=== PATIENT | male | born 1995 | race Caucasian/White ===

== ENCOUNTER 2021-05-26 02:14 | Emergency (ER) | payer BC ==
[2021-05-26 02:39] LABS: Absolute Lymphocytes (CBC) 2.4 K/uL (0.7-4.9); Basophils % 0.6 % (0-1.3); Hematocrit 45.3 % (39.6-49.0); Lymphocytes % 25.9 % (15.3-44.8); MPV 7.8 fL (7.6-11.3); RBC Red Blood Cell Count 5.75 M/uL (4.33-5.43)
[2021-05-26 02:42] LABS: Protime INR 1.11
[2021-05-26 03:14] LABS: Urine Blood Negative (Negative); Urine Glucose Negative (Negative); Urine Protein 1+ (Negative); Urine Specific Gravity >=1.030 (1.005-1.030)
[2021-05-26 03:27] LABS: ALT/SGPT 22 U/L (12-78); AST/SGOT 11 U/L (15-37); Albumin 4.2 g/dL (3.4-5.0); Alkaline Phosphatase 154 U/L (45-117); BUN Blood Urea Nitrogen 14 mg/dL (7-18); Bicarbonate 27 mmol/L (21-32); Bilirubin Direct 0.1 mg/dL (0-0.2); Bilirubin Total 0.4 mg/dL (0.2-1.0); Glucose Level 107 mg/dL (74-106); Potassium 3.6 mmol/L (3.5-5.1); Protein, Total 7.8 g/dL (6.4-8.2); Sodium Level 142 mmol/L (136-145)
[2021-05-26 03:44] LABS: Barbiturates NEGATIVE (NEGATIVE); Benzodiazepines NEGATIVE (NEGATIVE); Cocaine NEGATIVE (NEGATIVE); METHAMPHETAM NEGATIVE (NEGATIVE); Methadone NEGATIVE (NEGATIVE); Opiates NEGATIVE (NEGATIVE); Phencyclidine NEGATIVE (NEGATIVE); THC Cannibis NEGATIVE (NEGATIVE)
--- NOTE | 2021-05-26 06:01 | EDPHYS ---
Physician Documentation [facility] Name: Savage Senior Age: 25 yrs Sex: Male : 1995 Arrival Date: 05/26/2021 Time: 02:16 Bed 24 Private MD: ED Physician Frank Chino HPI: 05/26 02:18 This 25 yrs old Male presents to ER via Unassigned with complaints of Cuts to rn arm. 02:18 The patient presents to the emergency department with depression, suicide ideation, but rn the patient has no formulated plan. Onset: The symptoms/episode began/occurred today. Associated signs and symptoms: Pertinent positives; anxiety, depression, suicide ideation, Pertinent negatives: fever, hallucinations, homicidal ideation, substance abuse. Severity of symptoms: At their worst the symptoms were mild in the emergency department the symptoms have improved. The patient has experienced similar episodes in the past. The patient has not recently seen a physician. Patient brought in by police after roommate called police for possible suicidal ideations. Patient states he just had an argument with his girlfriend when out side took a walk and scraped his arm perpendicularly with a blade that was dull. States he was having suicidal ideations at the time but took himself out of it, did not have a specific plan, walked home and was locked out of the house. Lives with roommate called police after seeing skin danielson. Patient states currently not suicidal or homicidal. Denies substance abuse or overdose.. Historical: - Allergies: 02:20 Bactrim; dc2 - Immunization history:: Adult Immunizations up to date, Client reports having NOT received the Covid vaccine. Last tetanus immunization: up to date. - Family history:: not pertinent. - Social history:: Smoking status: Patient/guardian denies using alcohol, street drugs, tobacco products. - Hospitalizations: : No recent hospitalization is reported. ROS: 02:18 Constitutional: Negative for fever, chills, and weight loss, Eyes: Negative for injury, rn pain, redness, and discharge, ENT: Negative for injury, pain, and discharge, Neck: Negative for injury, pain, and swelling, Cardiovascular: Negative for chest pain, palpitations, and edema, Respiratory: Negative for shortness of breath, cough, wheezing, and pleuritic chest pain, Abdomen/GI: Negative for abdominal pain, nausea, vomiting, diarrhea, and constipation, Back: Negative for injury and pain, : Negative for injury, bleeding, discharge, and swelling, MS/Extremity: Negative for injury and deformity, Skin: Positive for abrasions left dorsal forearm, no laceration Neuro: Negative for headache, weakness, numbness, tingling, and seizure, Psych: Negative for homicidal ideation, and hallucinations. Exam: 02:18 Constitutional: This is a well developed, well nourished patient who is awake, alert, rn and in no acute distress. Disheveled Head/Face: Normocephalic, atraumatic. Eyes: Periorbital areas with no swelling, redness, or edema. Cardiovascular: Regular rate and rhythm. No pulse deficits. Respiratory: No increased work of breathing, no retractions or nasal flaring. Abdomen/GI: Soft, non-tender Skin: Warm, dry MS/ Extremity: Pulses equal, no cyanosis. Neuro: Awake and alert, GCS 15, oriented to person, place, time, and situation. Cranial nerves II-XII grossly intact. Motor strength 5/5 in all extremities. Sensory grossly intact. Cerebellar exam normal. Normal gait. 02:36 ECG was reviewed by the Attending Physician. rn Vital Signs: 02:05 BP 135 / 91; Pulse 93; Resp 17; Temp 97.8; Pulse Ox 100% on R/A; Weight 99.79 kg; dc2 Height 6 ft. 2 in. (187.96 cm); Pain 0/10; 02:10 BP 135 / 91; Pulse 93; Resp 17; Temp 97.1; Pulse Ox 100% ; Weight 99.79 kg; Height 6 dc2 ft. 2 in. (187.96 cm); Pain 0/10; 03:00 BP 127 / 84; Pulse 72; Resp 17; Pulse Ox 99% on R/A; Pain 0/10; dc2 04:00 BP 118 / 77; Pulse 68; Resp 16; Pulse Ox 100% on R/A; Pain 0/10; dc2 06:09 BP 108 / 72; Pulse 74; Resp 18; Temp 98.0; Pulse Ox 99% on R/A; Pain 0/10; dc2 02:10 Body Mass Index 28.25 (99.79 kg, 187.96 cm) dc2 MDM: 02:17 Patient medically screened. rn 05:59 Differential diagnosis: depression, Suicidal ideation. Data reviewed: vital signs, rn nurses notes, lab test result(s), and as a result, I will discharge patient. Counseling: I had a detailed discussion with the patient and/or guardian regarding: the historical points, exam findings, and any diagnostic results supporting the discharge/admit diagnosis, lab results, the need for outpatient follow up, to return to the emergency department if symptoms worsen or persist or if there are any questions or concerns that arise at home. Response to treatment: the patient's symptoms have markedly improved after treatment, and as a result, I will discharge patient. Special discussion: I discussed with the patient/guardian in detail that at this point there is no indication for admission to the hospital. It is understood, however, that if the symptoms persist or worsen the patient needs to return immediately for re-evaluation. Based on the history and exam findings, there is no indication for further emergent testing or inpatient evaluation. I discussed with the patient/guardian the need to see the psychiatrist for further evaluation of the symptoms. ED course: Patient medically cleared, evaluated by [facility] mental health specialist, the recommendation is to discharge home with outpatient appointment. Patient has denied suicidal ideation to me and to [facility] specialist. Patient states does not think he will harm himself or anybody if discharged.. 05/26 02:18 Order name: Acetaminophen 05/26 02:18 Order name: Basic Metabolic Panel 05/26 02:18 Order name: CBC with Diff; Complete Time: 05/26 02:18 Order name: ETOH Level; Complete Time: 05/26 02:18 Order name: Hepatic Function; Complete Time: 05/26 02:18 Order name: PT-INR; Complete Time: 05/26 02:18 Order name: Ptt, Activated; Complete Time: 05/26 02:18 Order name: Salicylate; Complete Time: 05/26 02:18 Order name: Urine Drug Screen; Complete Time: 05/26 02:18 Order name: Acetaminophen Level; Complete Time: EDMA 05/26 02:18 Order name: Basic Metabolic Panel; Complete Time: EDMA 05/26 02:37 Order name: COVID-19 : Document "Date of Symptom Onset" if Symptomatic. rn 05/26 03:14 Order name: Urine Dipstick-Ancillary; Complete Time: 04:28 EDMS 05/26 03:20 Order name: CORONAVIRUS EDMS 05/26 02:18 Order name: EKG; Complete Time: 02:19 rn 05/26 02:18 Order name: EKG - Nurse/Tech; Complete Time: 02:44 rn 05/26 02:18 Order name: IV Saline Lock; Complete Time: 02:19 rn 05/26 02:18 Order name: Labs collected and sent; Complete Time: 02:20 rn 05/26 02:18 Order name: Suicide Precautions; Complete Time: 02:20 rn 05/26 02:18 Order name: Suicide Screening ([place]); Complete Time: 03:12 rn 05/26 02:18 Order name: Urine Dipstick-Ancillary (obtain specimen); Complete Time: 03:12 rn 05/26 02:18 Order name: Wound Care; Complete Time: 02:55 rn 05/26 04:21 Order name: SARS-COV-2 RT PCR; Complete Time: 04:28 EDMS EC:36 Rate is 82 beats/min. Rhythm is regular. QRS [place] is Normal. RI interval is normal. QRS rn interval is normal. QT interval is normal. No Q waves. T waves are Normal. No ST changes noted. Clinical impression: Normal ECG. Interpreted by me. Reviewed by me. Administered Medications: No medications were administered Disposition Summary: 05/26/21 06:01 Discharge Ordered Location: Home rn Problem: new rn Symptoms: have improved rn Condition: Stable rn Diagnosis - Acute stress reaction rn - Suicidal ideations - Resolved(05/26/21 06:01) rn Followup: rn - With: Private Physician - When: As needed - Reason: Recheck today's complaints, Re-evaluation by your physician Discharge Instructions: - Discharge Summary Sheet rn - Suicidal Feelings: How to Help Yourself rn - Stress, Adult rn Forms: - Medication Reconciliation Form rn - Thank You Letter rn - Antibiotic property management intern - Prescription Opioid Use rn Signatures: Dispatcher [facility] Frank Andres MD MD rn Meka Joe RN RN dc2 Corrections: (The following items were deleted from the chart) 02:43 02:20 Allergies: No Known Allergies; dc2 dc2 06:01 06:01 Suicidal ideations rn rn
--- NOTE | 2021-05-26 06:01 | ER ---
Nurse's Notes [facility] Name: Savage Senior Age: 25 yrs Sex: Male : 1995 Arrival Date: 05/26/2021 Time: 02:16 Bed 24 Private MD: Diagnosis: Suicidal ideations-Resolved;Acute stress reaction Presentation: 05/26 02:05 Chief complaint: Patient states: " Me and the girlfriend got into it but we're good dc2 now" States scraped arm with a dull knife because he was frustrated. Denies SI or HI at this time. State" I woud have used a sharp knife if he had intentions of hurting himself". 02:05 Coronavirus screen: Vaccine status: Patient reports being unvaccinated. Client denies dc2 travel out of the [place] in the last 14 days. At this time, the client does not indicate any symptoms associated with coronavirus-19. Ebola Screen: Patient negative for fever greater than or equal to 101.5 degrees Fahrenheit, and additional compatible Ebola Virus Disease symptoms Patient denies exposure to infectious person. Patient denies travel to an Ebola-affected area in the 21 days before illness onset. Initial Sepsis Screen: Does the patient meet any 2 criteria? No. Patient's initial sepsis screen is negative. Does the patient have a suspected source of infection? No. Patient's initial sepsis screen is negative. Risk Assessment: Do you want to hurt yourself or someone else? Patient reports no desire to harm self or others. 02:05 Method Of Arrival: Law Enforcement dc2 02:18 Acuity: DONNA 2 dc2 02:18 Onset of symptoms was May 26, 2021 at 00:30. dc2 Triage Assessment: 02:05 General: Appears obese, unkempt, Behavior is cooperative, Smells of body odor. states dc2 hasn't had water in house in over a year. . Reports. Pain: Denies pain. Neuro: No deficits noted. Cardiovascular: No deficits noted. Respiratory: No deficits noted. : No deficits noted. Musculoskeletal: No deficits noted. Injury Description: Abrasion sustained to left arm, superficial cuts to left forearm . No bleeding noted. Historical: - Allergies: 02:20 Bactrim; dc2 - Immunization history:: Adult Immunizations up to date, Client reports having NOT received the Covid vaccine. Last tetanus immunization: up to date. - Family history:: not pertinent. - Social history:: Smoking status: Patient/guardian denies using alcohol, street drugs, tobacco products. - Hospitalizations: : No recent hospitalization is reported. Screenin:20 Abuse screen: Denies threats or abuse. Denies injuries from another. Nutritional dc2 screening: No deficits noted. Tuberculosis screening: No symptoms or risk factors identified. Never had TB. Possible symptoms: None Risk factors: None. Fall Risk None identified. Exposure risk/Travel Screening: None identified. Assessment: 02:05 General: Appears obese, unkempt, Behavior is calm, cooperative, Smells of Body odor. dc2 Reports Denies SI or HI. Neuro: No deficits noted. Respiratory: No deficits noted. GI: No deficits noted. : No deficits noted. Derm: Skin superficial scrapes/ cuts to left forearm, no bleeding. 02:20 Reassessment: Pt instructed on need for urine sample. Water given per request so that dc2 he can urinate. Vital Signs: 02:05 BP 135 / 91; Pulse 93; Resp 17; Temp 97.8; Pulse Ox 100% on R/A; Weight 99.79 kg; dc2 Height 6 ft. 2 in. (187.96 cm); Pain 0/10; 02:10 BP 135 / 91; Pulse 93; Resp 17; Temp 97.1; Pulse Ox 100% ; Weight 99.79 kg; Height 6 dc2 ft. 2 in. (187.96 cm); Pain 0/10; 03:00 BP 127 / 84; Pulse 72; Resp 17; Pulse Ox 99% on R/A; Pain 0/10; dc2 04:00 BP 118 / 77; Pulse 68; Resp 16; Pulse Ox 100% on R/A; Pain 0/10; dc2 06:09 BP 108 / 72; Pulse 74; Resp 18; Temp 98.0; Pulse Ox 99% on R/A; Pain 0/10; dc2 02:10 Body Mass Index 28.25 (99.79 kg, 187.96 cm) dc2 ED Course: 02:15 Irrigation of superficial cuts to left forearm cleaned with normal saline. dc2 02:16 Patient arrived in ED. mw2 02:17 Frank Chino MD is Attending Physician. rn 02:19 Meka Joe RN is Primary Nurse. dc2 02:19 Basic Metabolic Panel Sent. dc2 02:19 Acetaminophen Level Sent. dc2 02:19 Acetaminophen Sent. dc2 02:19 Basic Metabolic Panel Sent. dc2 02:19 CBC with Diff Sent. dc2 02:19 ETOH Level Sent. dc2 02:19 Hepatic Function Sent. dc2 02:19 PT-INR Sent. dc2 02:19 Ptt, Activated Sent. dc2 02:19 Salicylate Sent. dc2 02:20 Inserted saline lock: 20 gauge in right antecubital area, using aseptic technique. dc2 02:20 No provider procedures requiring assistance completed. dc2 02:20 Patient has correct armband on for positive identification. Allergy band placed. Placed dc2 in gown. Bed in low position. Call light in reach. Side rails up X 1. nurse monitoring on. Pulse ox on. NIBP on. Door closed. Lights dimmed. 02:20 Arm band placed on right wrist. dc2 02:24 Triage completed. dc2 02:57 COVID swab sent to lab. dc2 03:00 Awaiting lab results. dc2 03:00 nurse monitoring on. Pulse ox on. NIBP on. dc2 04:00 No apparent distress. Resting quietly. dc2 04:36 contacted [facility] Line spoke to Elvi to have a screener evaluate the 2 patient. 05:10 CORONAVIRUS Sent. dc2 05:22 Pt on phone with psychiatry. dc2 06:08 IV discontinued, intact, bleeding controlled, No redness/swelling at site. Pressure dc2 dressing applied. Administered Medications: No medications were administered Outcome: 06:01 Discharge ordered by . rn 06:07 Discharged to home ambulatory. dc2 06:07 Condition: stable 06:07 Discharge instructions given to patient, Instructed on discharge instructions, follow up and referral plans. Demonstrated understanding of instructions. 06:15 Patient left the ED. dc2 Signatures: Frank Chino MD MD rn [place], [facility] Meka Joe RN RN dc2 Corrections: (The following items were deleted from the chart) 02:36 02:05 Acuity: DONNA 2 dc2 dc2 02:37 02:05 Method Of Arrival: Law Enforcement dc2 dc2 02:38 02:05 Chief complaint: Patient states: " Me and the girlfriend got into it but we're dc2 good now" States scraped arm with a dull knife because he was frustrated. Denies SI or HI at this time. State" I woud have used a sharp knife if he had intentions of hurting himself" dc2 02:43 02:20 Allergies: No Known Allergies; dc2 dc2
[2021-05-26 06:49] VITALS: BP 108/72; TEMP 98; O2SAT 99
== END 2021-05-26 06:15 | disposition home or self-care (01) ==
LOC: ER 02:14
DX: F43.0 Acute stress reaction (principal); Z20.822 Contact with and (suspected) exposure to COVID-19; Z88.1 Allergy status to other antibiotic agents
CPT/HCPCS: 93005; 85025; 80048; 36415; 80320; 80329 ×2; 85610; 80076; 85730; 81003; 80307; 99284; U0003

== ENCOUNTER 2022-01-12 09:09 | Emergency (ER) | payer SELFPAY ==
--- NOTE | 2022-01-12 10:04 | EDPHYS ---
Physician Documentation [facility] Name: Savage Senior Age: 26 yrs Sex: Male : 1995 Arrival Date: 01/12/2022 Time: 09:12 Bed Waiting Private MD: KIRTI Physician Shilo Garcia HPI: 01/12 10:01 This 26 yrs old Male presents to ER via Ambulatory with complaints of Bee Sting. jmm 10:01 The patient or guardian reports injury, pain. The complaints affect the left hand. jmm Onset: The symptoms/episode began/occurred acutely, 1 day(s) ago. Associated signs and symptoms: Pertinent positives: swelling. It is unknown whether or not the patient has had similar symptoms in the past. Patient states he was stund by a yellow jacket yesterday with increased swelling today. Denies shortness of breath. Historical: - Allergies: 09:23 Bactrim; ll1 - PMHx: 09:23 Asthma; psych problems; ll1 - PSHx: 09:23 None; ll1 - Immunization history:: Client reports having NOT received the Covid vaccine. - Social history:: Smoking status: Patient reports the use of cigarette tobacco products, smokes one pack cigarettes per day. ROS: 10:01 Constitutional: Negative for fever, chills, and weight loss, Cardiovascular: Negative jmm for chest pain, palpitations, and edema, Respiratory: Negative for shortness of breath, cough, wheezing, and pleuritic chest pain. 10:01 MS/extremity: Positive for swelling. 10:01 All other systems are negative. Exam: 10:01 Constitutional: This is a well developed, well nourished patient who is awake, alert, jmm and in no acute distress. Head/Face: atraumatic. Eyes: EOMI, no conjunctival erythema appreciated ENT: Moist Mucus Membranes Neck: Trachea midline, Supple Chest/axilla: Normal chest wall appearance and motion. Cardiovascular: Regular rate and rhythm. No edema appreciated Respiratory: Normal respirations, no respiratory distress appreciated Abdomen/GI: Non distended, soft Back: Normal ROM 10:01 Musculoskeletal/extremity: swelling noted to the left hand, from appreciated, full radial pulse. 10:01 Skin: swelling noted to the left hand. 10:01 Neuro: Orientation: is normal, Mentation: is normal, Memory: is normal. 10:01 Psych: Behavior/mood is pleasant, cooperative. Vital Signs: 09:25 BP 174 / 105; Pulse 100; Resp 16; Temp 98.5; Pulse Ox 97% on R/A; Weight 99.79 kg; ll1 Height 6 ft. 2 in. (187.96 cm); Pain 8/10; 10:40 BP 139 / 85; Pulse 100; Resp 16; Pulse Ox 97% on R/A; ll1 09:25 Body Mass Index 28.25 (99.79 kg, 187.96 cm) 1 MDM: 10:00 Patient medically screened. [facility] 10:02 Data reviewed: vital signs, nurses notes. Counseling: I had a detailed discussion with maxi the patient and/or guardian regarding: the historical points, exam findings, and any diagnostic results supporting the discharge/admit diagnosis, the need for outpatient follow up, to return to the emergency department if symptoms worsen or persist or if there are any questions or concerns that arise at home. ED course: Patient is alert and non toxic in appearance in the ED. Left hand is NVI. Will treat with steroids and abx. Patient otherwise given strict return precautions. Patient understood and agrees with the plan of care. . Administered Medications: 10:27 Drug: Decadron (dexamethasone) 10 mg Route: IM; Site: right vastus lateralis; 1 19:12 Follow up: Response: No adverse reaction [facility] Disposition Summary: 01/12/22 10:04 Discharge Ordered Location: Home [facility] Condition: Stable [facility] Diagnosis - Hymenoptra Envenomation of the Left Hand, initial visit [facility] Followup: [facility] - With: Private Physician - When: 2 - 3 days - Reason: Recheck today's complaints, Continuance of care, Re-evaluation by your physician Discharge Instructions: - Discharge Summary Sheet [facility] - Bee, Wasp, or Hornet Sting, Adult [facility] Forms: - Medication Reconciliation Form [facility] - Thank You Letter joel - Antibiotic Education [facility] - Prescription Opioid Use [facility] - Work release form 1 Prescriptions: - Cephalexin 500 mg Oral Capsule - take 1 capsule by ORAL route every 6 hours for 10 days; 40 capsule; Refills: 0, [facility] Product Selection Permitted - Prednisone 20 mg Oral Tablet - take 3 tablets by ORAL route once daily for 5 days; 15 tablet; Refills: 0, jmm Product Selection Permitted Signatures: Antwan Delgado PA PA jmm Lewis, Lynsay, RN RN ll1
--- NOTE | 2022-01-12 10:04 | ER ---
Nurse's Notes [facility] Name: Savage Senior Age: 26 yrs Sex: Male : 1995 Arrival Date: 01/12/2022 Time: 09:12 Bed Waiting Private MD: Diagnosis: Hymenoptra Envenomation of the Left Hand, initial visit Presentation: 01/12 09:25 Chief complaint: Patient states: Sting to L hand yesterday. Hand swollen today. No ll1 fever. Coronavirus screen: Vaccine status: Patient reports being unvaccinated. Client denies travel out of the [place] in the last 14 days. At this time, the client does not indicate any symptoms associated with coronavirus-19. Ebola Screen: Patient denies travel to an Ebola-affected area in the 21 days before illness onset. Onset: The symptoms/episode began/occurred yesterday. Anaphylaxis evaluation, no signs or symptoms of anaphylaxis were noted. Initial Sepsis Screen: Does the patient meet any 2 criteria? No. Patient's initial sepsis screen is negative. Does the patient have a suspected source of infection? Yes: Skin breakdown/wound. Risk Assessment: Do you want to hurt yourself or someone else? Patient reports no desire to harm self or others. Onset of symptoms was January 11, 2022. 09:25 Method Of Arrival: Ambulatory ll1 09:25 Acuity: DONNA 4 ll1 Triage Assessment: 09:25 General: Appears uncomfortable, Behavior is calm, cooperative, appropriate for age. ll1 Pain: Complains of pain in left hand Quality of pain is described as aching. Derm: Reports swelling L hand. s/p insect bite. Historical: - Allergies: 09:23 Bactrim; ll1 - PMHx: 09:23 Asthma; psych problems; ll1 - PSHx: 09:23 None; ll1 - Immunization history:: Client reports having NOT received the Covid vaccine. - Social history:: Smoking status: Patient reports the use of cigarette tobacco products, smokes one pack cigarettes per day. Screenin:41 Abuse screen: Denies threats or abuse. Nutritional screening: No deficits noted. ll1 Tuberculosis screening: No symptoms or risk factors identified. Fall Risk Total Rhoades Fall Scale indicates No Risk (0-24 pts). Assessment: 10:40 Reassessment: No changes from previously documented assessment. Patient and/or family ll1 updated on plan of care and expected duration. Pain level reassessed. Patient is alert, oriented x 3, equal unlabored respirations, skin warm/dry/pink. Respiratory: Airway is patent Respiratory effort is even, unlabored, Breath sounds are clear bilaterally. Vital Signs: 09:25 BP 174 / 105; Pulse 100; Resp 16; Temp 98.5; Pulse Ox 97% on R/A; Weight 99.79 kg; ll1 Height 6 ft. 2 in. (187.96 cm); Pain 8/10; 10:40 BP 139 / 85; Pulse 100; Resp 16; Pulse Ox 97% on R/A; ll1 09:25 Body Mass Index 28.25 (99.79 kg, 187.96 cm) ll1 ED Course: 09:12 Patient arrived in ED. mr 09:24 Arm band placed on. ll1 09:26 Triage completed. 1 09:32 [facility]an Delgado [facility] 09:32 Shilo Garcia MD is Attending Physician. [facility] 10:41 Patient has correct armband on for positive identification. Cardiac monitoring not ll1 applicable on this patient. 10:41 No provider procedures requiring assistance completed. Patient did not have IV access ll1 during this emergency room visit. Administered Medications: 10:27 Drug: Decadron (dexamethasone) 10 mg Route: IM; Site: right vastus lateralis; ll1 19:12 Follow up: Response: No adverse reaction ll1 Medication: 19:11 VIS not applicable for this client. 1 Outcome: 10:04 Discharge ordered by . maxi 10:41 Patient left the ED. 1 10:41 Discharged to home ambulatory. 1 10:41 Condition: stable 10:41 Discharge instructions given to patient, Instructed on discharge instructions, follow up and referral plans. medication usage, Demonstrated understanding of instructions, follow-up care, medications, Prescriptions given X 2. Signatures: Antwan Delgado PA PA jmm Rivera, Mary mr [employer], RN RN ll1
[2022-01-12] MEDS ORDERED: dexAMETHasone 10 MG/ML VIAL ONE (10:28)
[2022-01-12 10:51] VITALS: BP 174/105; TEMP 98.5; O2SAT 97
== END 2022-01-12 10:41 | disposition home or self-care (01) ==
LOC: ER 09:09
DX: S60.562A Insect bite (nonvenomous) of left hand, initial encounter (principal); T63.441A Toxic effect of venom of bees, accidental (unintentional), initial encounter; Y92.9 Unspecified place or not applicable; Z88.1 Allergy status to other antibiotic agents; J45.909 Unspecified asthma, uncomplicated; F17.210 Nicotine dependence, cigarettes, uncomplicated
CPT/HCPCS: 96372; 99283; J1100

== ENCOUNTER 2022-04-25 11:27 | Emergency (ER) | payer SELFPAY ==
[2022-04-25] MEDS ORDERED: TETANUS & DIPHTHERIA TOX,ADULT 0.5 ML VIAL ONE (12:25)
--- NOTE | 2022-04-25 12:28 | ER ---
Nurse's Notes [facility] Name: Savage Senior Age: 26 yrs Sex: Male : 1995 Arrival Date: 04/25/2022 Time: 11:28 Bed 26 Private MD: Diagnosis: Laceration without foreign body of left ring finger without damage to nail, initial encounter Presentation: 04/25 11:34 Chief complaint: Patient states: "I was cutting potatoes last night and cut my finger." ss Laceration noted to L fourth finger. Coronavirus screen: Client denies travel out of the [place] in the last 14 days. Ebola Screen: Patient denies exposure to infectious person. Patient denies travel to an Ebola-affected area in the 21 days before illness onset. Complicating Factors: There are no complicating factors for this patient. Initial Sepsis Screen: Does the patient meet any 2 criteria? No. Patient's initial sepsis screen is negative. Does the patient have a suspected source of infection? No. Patient's initial sepsis screen is negative. Risk Assessment: Do you want to hurt yourself or someone else? Patient reports no desire to harm self or others. Onset of symptoms was April 24, 2022. 11:34 Method Of Arrival: Ambulatory ss 11:34 Acuity: DONNA 4 ss Historical: - Allergies: 11:36 Bactrim; ss 11:36 Sulfa (Sulfonamide Antibiotics); ss - PMHx: 11:36 Asthma; PSYCH PROBLEMS; ss - Immunization history:: Last tetanus immunization: Vaccine Information Sheet provided regarding tetanus vaccine. - Social history:: Smoking status: Patient reports the use of cigarette tobacco products, smokes one-half pack cigarettes per day. Screenin:55 Abuse screen: Denies threats or abuse. Denies injuries from another. Nutritional ss screening: No deficits noted. Tuberculosis screening: Never had TB. Fall Risk None identified. Assessment: 11:57 General: Appears in no apparent distress. comfortable, Behavior is calm, cooperative, ss Denies fever, feeling ill, fatigue, chills. Neuro: Level of Consciousness is awake, alert, obeys commands. Cardiovascular: Capillary refill < 3 seconds is brisk in bilateral fingers Patient's skin is warm and dry. Respiratory: Airway is patent Respiratory effort is even, unlabored, Respiratory pattern is regular, symmetrical. Derm: Skin is intact, is healthy with good turgor, Skin is pink, warm \\T\\ dry. normal. Musculoskeletal: Circulation, motion, and sensation intact. Range of motion: intact in all extremities, Swelling absent. Injury Description: Laceration sustained to palmar aspect of distal phalanx of left little finger is 0.5 to 2.5 cm long, was sustained 12-24 hours ago. is bleeding no active bleeding noted. Vital Signs: 11:34 BP 138 / 99; Pulse 109; Resp 16; Temp 98.4(TE); Pulse Ox 99% on R/A; Weight 127.01 kg; ss Height 6 ft. 2 in. (187.96 cm); Pain 4/10; 11:34 Body Mass Index 35.95 (127.01 kg, 187.96 cm) ED Course: 11:28 Patient arrived in ED. as 11:30 Shilo Menjivar PA is PHCP. cp 11:30 Frank Chino MD is Attending Physician. cp 11:36 Triage completed. ss 11:36 Arm band placed on right wrist. ss 11:55 Samreen Encinas, BEATRICE is Primary Nurse. ss 11:55 Patient has correct armband on for positive identification. Bed in low position. ss 12:25 No provider procedures requiring assistance completed. Patient did not have IV access ss during this emergency room visit. Wound care: to avulsion located on palmar aspect of distal phalanx of left little finger was cleaned with soap and water, dressed with cling, surgiseal, Patient tolerated well. Administered Medications: 12:20 Drug: Tetanus-Diphtheria Toxoid Adult 0.5 ml {Physician Chief Of Pathology: [email or web address]. Exp: ss 01/03/2024. Lot #: [id number]. } Route: IM; Site: right deltoid; 12:44 Follow up: Response: (VIS) Vaccine information sheet provided today. Questions and/or ss concerns addressed. VIS edition date: Apr 04, 2021.; No adverse reaction Medication: 12:42 Vaccine Information Statement (VIS) provided today. Questions and/or concerns ss addressed. VIS edition date: March 2021. Outcome: 12:27 Discharge ordered by . cp 12:41 Discharged to home ambulatory. ss 12:41 Condition: good 12:41 Discharge instructions given to patient, friend, Instructed on discharge instructions, follow up and referral plans. medication usage, wound care, Demonstrated understanding of instructions, follow-up care, medications, Prescriptions given X 1. 12:43 Patient left the ED. Signatures: Arianna Chow Shelby, RN RN Shilo Menjivar PA PA cp Corrections: (The following items were deleted from the chart) 11:37 11:36 Social history: Smoking status: Patient reports the use of cigarette tobacco ss products, smokes one pack cigarettes per day. 12:43 11:57 VIS not applicable for this client. ss
--- NOTE | 2022-04-25 12:28 | EDPHYS ---
Physician Documentation [facility] Name: Savage Senior Age: 26 yrs Sex: Male : 1995 Arrival Date: 04/25/2022 Time: 11:28 Bed 26 Private MD: ED Physician Frank Chino HPI: 04/25 12:10 This 26 yrs old Male presents to ER via Ambulatory with complaints of Laceration - cp finger. 12:10 The patient or guardian reports injury. The complaints affect the cobos side of distal cp phalanx left fourth finger. Context: The problem was sustained at work, resulted from cutting potatoes. Onset: The symptoms/episode began/occurred last night. Associated signs and symptoms: The patient has no apparent associated signs or symptoms. Historical: - Allergies: 11:36 Bactrim; ss 11:36 Sulfa (Sulfonamide Antibiotics); ss - PMHx: 11:36 Asthma; PSYCH PROBLEMS; ss - Immunization history:: Last tetanus immunization: Vaccine Information Sheet provided regarding tetanus vaccine. - Social history:: Smoking status: Patient reports the use of cigarette tobacco products, smokes one-half pack cigarettes per day. ROS: 12:15 Constitutional: Negative for body aches, chills, fever, poor PO intake. cp 12:15 Skin: Positive for of the distal phalanx cobos side left fourth finger, superficial skin avulsion. 12:15 Neuro: Negative for numbness, tingling, weakness. 12:15 All other systems are negative. Exam: 12:18 Constitutional: The patient appears in no acute distress, alert, awake, non-toxic, well cp developed, well nourished. 12:18 Skin: injury, avulsion(s), a small of the palmar aspect of distal phalanx of left cp fourth finger, that can be described as without bleeding, nail and nail bed intact, dermal layer of skin exposed, mild swelling, fourth finger neurovascular intact. Vital Signs: 11:34 BP 138 / 99; Pulse 109; Resp 16; Temp 98.4(TE); Pulse Ox 99% on R/A; Weight 127.01 kg; ss Height 6 ft. 2 in. (187.96 cm); Pain 4/10; 11:34 Body Mass Index 35.95 (127.01 kg, 187.96 cm) ss MDM: 11:42 Patient medically screened. cp 12:20 Differential diagnosis: open fracture, contusion, laceration, skin avulsion, nail cp injury. 12:27 Data reviewed: vital signs, nurses notes. cp 12:27 Counseling: I had a detailed discussion with the patient and/or guardian regarding: the cp historical points, exam findings, and any diagnostic results supporting the discharge/admit diagnosis, to return to the emergency department if symptoms worsen or persist or if there are any questions or concerns that arise at home. Response to treatment: the patient's symptoms have markedly improved after treatment, and as a result, I will. 04/25 12:04 Order name: Wound dressing: clean and dress with surgiseal; Complete Time: 12:24 cp Administered Medications: 12:20 Drug: Tetanus-Diphtheria Toxoid Adult 0.5 ml {[employer]: [employer]. Exp: ss 01/03/2024. Lot #: [id number]. } Route: IM; Site: right deltoid; 12:44 Follow up: Response: (VIS) Vaccine information sheet provided today. Questions and/or ss concerns addressed. VIS edition date: Apr 04, 2021.; No adverse reaction Disposition Summary: 04/25/22 12:27 Discharge Ordered Location: Home cp Problem: new cp Symptoms: have improved cp Condition: Stable cp Diagnosis - Laceration without foreign body of left ring finger without damage to nail, initial cp encounter Followup: cp - With: Private Physician - When: 1 - 2 days - Reason: Worsening of condition Discharge Instructions: - Discharge Summary Sheet cp - Nonsutured Laceration Care cp Forms: - Medication Reconciliation Form cp - Thank You Letter cp - Work release form ss - Antibiotic Education cp - Prescription Opioid Use cp Prescriptions: - Cephalexin 500 mg Oral Capsule - take 1 capsule by ORAL route every 8 hours for 10 days; 30 capsule; Refills: 0, cp Product Selection Permitted Addendum: 04/26/2022 17:16 Co-signature as Attending Physician, Frank Chino MD. r n Signatures: Frank Chino MD MD rn Smirch, Shelby, RN RN Shilo Menjivar PA PA cp Corrections: (The following items were deleted from the chart) 04/25 11:37 11:36 Social history: Smoking status: Patient reports the use of cigarette tobacco ss products, smokes one pack cigarettes per day. 04/26 10: 10: Constitutional: Negative for body aches, chills, fever, poor PO intake, cp cp :23 06: Skin: Positive for of the distal phalanx cobos side left fourth finger, cp superficial skin avulsion, cp :23 06: Neuro: Negative for numbness, tingling, weakness, cp cp :23 06: All other systems are negative, cp cp
[2022-04-25 13:24] VITALS: BP 138/99; TEMP 98.4; O2SAT 99
== END 2022-04-25 12:43 | disposition home or self-care (01) ==
LOC: ER 11:27
DX: S61.215A Laceration without foreign body of left ring finger without damage to nail, initial encounter (principal); Z23 Encounter for immunization; Z88.2 Allergy status to sulfonamides; F17.210 Nicotine dependence, cigarettes, uncomplicated
CPT/HCPCS: 90471; 90714; 99283

== ENCOUNTER 2022-10-22 19:00 | Emergency (ER) | payer SELFPAY ==
[2022-10-22] MEDS ORDERED: ACETAMINOPHEN 500 MG TAB ONE (19:21)
--- NOTE | 2022-10-22 20:02 | RAD REPORT ---
EXAM DESCRIPTION: RAD - Chest Pa And Lat (2 Views) - 10/22/2022 7:58 pm CLINICAL HISTORY: COUGH COMPARISON: No comparisons FINDINGS: Lines: None. Lungs: No evidence of edema or pneumonia. Pleural: No significant pleural effusions or pneumothorax. Cardiac: The heart size is within normal limits. Mediastinum: Within normal limits. Bones: No acute fractures. Other: None IMPRESSION: No acute cardiopulmonary disease.
[2022-10-22 20:03] LABS: SARS-COV-2 RT PCR NEGATIVE (NEGATIVE)
--- NOTE | 2022-10-22 20:24 | ER ---
Nurse's Notes [facility] Name: Savage Senior Age: 26 yrs Sex: Male : 1995 Arrival Date: 10/22/2022 Time: 19:02 Bed 5 Private MD: Diagnosis: Cough Presentation: 10/22 19:08 Chief complaint: Patient states: "When I cough my headache spikes, it is right in the tw5 back." Patient states that he has had a cough for over a week, vomiting and diarrhea with a fever on Wednesday. Coronavirus screen: Vaccine status: Patient reports being unvaccinated. Ebola Screen: Patient negative for fever greater than or equal to 101.5 degrees Fahrenheit, and additional compatible Ebola Virus Disease symptoms Patient denies exposure to infectious person. Patient denies travel to an Ebola-affected area in the 21 days before illness onset. Initial Sepsis Screen: Does the patient meet any 2 criteria? Does the patient have a suspected source of infection? No. Patient's initial sepsis screen is negative. Risk Assessment: Do you want to hurt yourself or someone else? Patient reports no desire to harm self or others. Onset of symptoms is unknown. 19:08 Method Of Arrival: Ambulatory tw5 19:08 Acuity: DONNA 4 tw5 Triage Assessment: 19:10 General: Appears in no apparent distress. Behavior is calm, cooperative, appropriate tw5 for age. Pain: Pain currently is 7 out of 10 on a pain scale. Historical: - Allergies: 19:10 Bactrim; tw5 19:10 Sulfa (Sulfonamide Antibiotics); tw5 - Home Meds: 19:10 None [Active]; tw5 - PMHx: 19:10 Asthma; tw5 - PSHx: 19:10 Tonsillectomy; tw5 - Immunization history:: Flu vaccine is not up to date. - Social history:: Smoking status: Patient reports the use of cigarette tobacco products, smokes one pack cigarettes per day. Screenin:11 [facility] ED Fall Risk Assessment (Adult) History of falling in the last 3 months, tw5 including since admission No falls in past 3 months (0 pts). Abuse screen: Denies threats or abuse. Denies injuries from another. Nutritional screening: No deficits noted. Tuberculosis screening: No symptoms or risk factors identified. Assessment: 19:15 General: Appears in no apparent distress. Behavior is calm, cooperative, Reports as6 feeling ill for fatigue for. Pain: Complains of pain in head. Neuro: Level of Consciousness is awake, alert, obeys commands, Oriented to person, place, time, situation, Reports headache. Respiratory: Respiratory effort is even, unlabored. EENT: Reports loss of taste and smell . Vital Signs: 19:08 BP 142 / 92; Pulse 99; Resp 18; Temp 98.7; Pulse Ox 96% on R/A; Weight 96.62 kg; Height tw5 6 ft. 2 in. (187.96 cm); 20:27 BP 117 / 66; Pulse 92; Resp 18 S; Pulse Ox 97% on R/A; as6 19:08 Body Mass Index 27.35 (96.62 kg, 187.96 cm) tw5 ED Course: 19:02 Patient arrived in ED. am2 19:02 Antwan Delgado PA is PHCP. [facility] 19:02 Frank Chino MD is Attending Physician. [facility] 19:03 PHCP role handed off by Antwan Delgado PA cp 19:03 Shilo Menjivar PA is PHCP. cp 19:10 Triage completed. tw5 19:11 Arm band placed on. tw5 19:11 Patient has correct armband on for positive identification. Door closed. Noise tw5 minimized. Moved to private room. 19:12 Henok Ward, RN is Primary Nurse. as6 19:23 Strep Sent. as6 19:23 COVID-19/FLU A+B Sent. as6 20:33 No provider procedures requiring assistance completed. Patient did not have IV access kd3 during this emergency room visit. Administered Medications: 19:19 Drug: Tylenol 1000 mg Route: PO; as6 20:33 Follow up: Response: No adverse reaction; Pain is decreased kd3 Medication: 19:11 VIS not applicable for this client. tw5 Outcome: 20:24 Discharge ordered by . cp 20:33 Discharged to home ambulatory. kd3 20:33 Condition: stable 20:33 Discharge instructions given to patient, Instructed on discharge instructions, follow up and referral plans. Demonstrated understanding of instructions, follow-up care, medications, Prescriptions given X 3. 20:34 Patient left the ED. kd3 Signatures: Antwan Delgado PA PA jmm Page, Corey, PA PA Heather Melissa am2 Terri Umanzor tw5 Henok Ward RN RN as6 Aemrica Russell RN RN kd3 Corrections: (The following items were deleted from the chart) 19:13 19:08 Acuity: DONNA 3 tw5 tw5
--- NOTE | 2022-10-22 20:24 | EDPHYS ---
Physician Documentation [facility] Name: Savage Senior Age: 26 yrs Sex: Male : 1995 Arrival Date: 10/22/2022 Time: 19:02 Bed 5 Private MD: ED Physician Frank Chino HPI: 10/22 19:20 This 26 yrs old Male presents to ER via Ambulatory with complaints of covid symptoms. cp 19:20 The patient or guardian reports cough, that is intermittent, with productive sputum. cp Onset: The symptoms/episode began/occurred for over 1 week. 19:20 Severity of symptoms: in the emergency department the symptoms are unchanged. cp Associated signs and symptoms: Pertinent positives: sore throat, headache starting in back of head worse with cough, diarrhea, vomiting. Historical: - Allergies: 19:10 Bactrim; tw5 19:10 Sulfa (Sulfonamide Antibiotics); tw5 - Home Meds: 19:10 None [Active]; tw5 - PMHx: 19:10 Asthma; tw5 - PSHx: 19:10 Tonsillectomy; tw5 - Immunization history:: Flu vaccine is not up to date. - Social history:: Smoking status: Patient reports the use of cigarette tobacco products, smokes one pack cigarettes per day. ROS: 19:25 Constitutional: Negative for body aches, fever, poor PO intake. cp 19:25 Eyes: Negative for injury, pain, redness, and discharge. cp 19:25 ENT: Positive for sore throat, Negative for drainage from ear(s), ear pain, difficulty swallowing, difficulty handling secretions. 19:25 Respiratory: Positive for cough, "sounds productive", Negative for shortness of breath, wheezing. 19:25 Abdomen/GI: Positive for vomiting, diarrhea, Negative for abdominal pain, constipation. 19:25 Skin: Negative for cellulitis, rash. 19:25 Neuro: Positive for headache, Negative for altered mental status, dizziness, syncope, weakness. 19:25 All other systems are negative. Exam: 19:30 Constitutional: The patient appears in no acute distress, alert, awake, non-toxic, well cp developed, well nourished. 19:30 Head/Face: Normocephalic, atraumatic. cp 19:30 Eyes: Periorbital structures: appear normal, Conjunctiva: normal, no exudate, no injection, Sclera: no appreciated abnormality, Lids and lashes: appear normal, bilaterally. 19:30 ENT: External ear(s): are unremarkable, Nose: is normal, Mouth: Lips: moist, Oral mucosa: moist, Posterior pharynx: Airway: no evidence of obstruction, patent, Tonsils: with erythema, no enlargement, no exudate, swelling, is not appreciated, erythema, that is mild, exudate, is not appreciated. 19:30 Neck: ROM/movement: is normal, is supple, without pain, no range of motions limitations, no meningismus, Lymph nodes: no appreciated lymphadenopathy. 19:30 Chest/axilla: Inspection: normal. 19:30 Cardiovascular: Rate: normal, Rhythm: regular. 19:30 Respiratory: the patient does not display signs of respiratory distress, Respirations: normal, no use of accessory muscles, no retractions, labored breathing, is not present, Breath sounds: decreased breath sounds, are not appreciated, stridor, is not appreciated, wheezing: is not appreciated. 19:30 Abdomen/GI: Inspection: abdomen appears normal, Palpation: abdomen is soft and non-tender, in all quadrants. 19:30 Skin: cellulitis, is not appreciated, no rash present. Vital Signs: 19:08 BP 142 / 92; Pulse 99; Resp 18; Temp 98.7; Pulse Ox 96% on R/A; Weight 96.62 kg; Height tw5 6 ft. 2 in. (187.96 cm); 20:27 BP 117 / 66; Pulse 92; Resp 18 S; Pulse Ox 97% on R/A; as6 19:08 Body Mass Index 27.35 (96.62 kg, 187.96 cm) tw5 MDM: 19:12 Patient medically screened. cp 20:24 Data reviewed: vital signs, nurses notes, lab test result(s), radiologic studies, plain cp films. 20:24 Independent interpretation of the following test(s) in the Emergency Department X-Ray: cp My interpretation is images of chest negative for focal pneumonia. Test considered but Not performed: Labs: cbc, bmp. Care significantly affected by the following chronic conditions: asthma, tobacco use. Counseling: I had a detailed discussion with the patient and/or guardian regarding: the historical points, exam findings, and any diagnostic results supporting the discharge/admit diagnosis, lab results, radiology results, to return to the emergency department if symptoms worsen or persist or if there are any questions or concerns that arise at home. 10/22 19:12 Order name: COVID-19/FLU A+B cp 10/22 19:12 Order name: Strep cp 10/22 19:12 Order name: XRAY Chest Pa And Lat (2 Views) cp 10/22 19:37 Order name: Group A Streptococcus Rapid Sc; Complete Time: 20:22 EDMS 10/22 20:04 Order name: RAD; Complete Time: 20:22 EDMS 10/22 20:22 Interpretation: Report reviewed. cp 10/22 20:04 Order name: COVID-19/FLU A+B; Complete Time: 20:22 EDMS Administered Medications: 19:19 Drug: Tylenol 1000 mg Route: PO; as6 20:33 Follow up: Response: No adverse reaction; Pain is decreased kd3 Disposition Summary: 10/22/22 20:24 Discharge Ordered Location: Home cp Problem: new cp Symptoms: are unchanged cp Condition: Stable cp Diagnosis - Cough cp Followup: cp - With: Private Physician - When: 2 - 3 days - Reason: Worsening of condition Discharge Instructions: - Discharge Summary Sheet cp - Cough, Adult cp Forms: - Medication Reconciliation Form cp - Thank You Letter cp - Antibiotic Education cp - Prescription Opioid Use cp - Work release form kd3 Prescriptions: - Bromfed DM 2-30-10 mg/5 mL Oral syrup - take 10 milliliter by ORAL route every 6 hours; 10 milliliter; Refills: 0, cp Product Selection Permitted - albuterol sulfate 90 mcg/actuation Inhalation HFA aerosol inhaler - inhale 1 puff by INHALATION route every 4-6 hours; 1 Inhaler; Refills: 0, cp Product Selection Permitted - Zithromax Z-Salom[place] 250 mg Oral Tablet - take 1 tablet by ORAL route as directed for 5 days Day 1 - take two (2) tablets cp one time. Day 2, 3, 4 , 5 take one (1) tablet once daily.; 6 tablet; Refills: 0, Product Selection Permitted Addendum: 10/25/2022 07:40 Co-signature as Attending Physician, Frank Chino MD I reviewed the patient's care r n provided by the Advanced Practice Provider and agree with the diagnosis and treatment plan. Signatures: Dispatcher [employer] Frank Andres MD MD rn Shilo Menjivar PA PA cp Wood, Tiffany tw5 Henok Ward RN RN as6 America Russell RN kd3
[2022-10-22 21:23] VITALS: TEMP 98.7
[2022-10-22 21:24] VITALS: BP 117/66; O2SAT 97
== END 2022-10-22 20:34 | disposition home or self-care (01) ==
LOC: ER 19:00
DX: R05.9 Cough, unspecified (principal); R51.9 Headache, unspecified; R07.0 Pain in throat
CPT/HCPCS: 0240U; 71046; 87070; 87081; 99283